=== PATIENT | female | born 1980 | race Caucasian/White ===

== ENCOUNTER 2017-11-22 16:53 | Emergency (ER) | payer SELFPAY ==
[2017-11-22 17:10] VITALS: BP 115/77; PULSE 80; TEMP 98.7; BMI 28.3
--- NOTE | 2017-11-22 17:42 | PDOC ---
History of Present Illness - General History Source: Patient Exam Limitations: No Limitations <Stephy Puente - Last Filed: 11/22/17 17:52> - General History Source: Patient Exam Limitations: No Limitations - History of Present Illness Initial Comments: 11/22/17 17:57 The patient is a 37 year old female with no significant PMH presenting with left shoulder pain for the past month. The patient denies any trauma prior to the onset of her left shoulder pain. Patient endorses severe pain with motion and relief at rest. Patient denies recent skin injections or back surgeries. Patient was seen at [facility] for this left shoulder pain and was advised to follow up with ortho. Patient has not followed up yet, but presents today due to persistent pain. The patient denies fever, chills, nausea, or vomit. Allergies: NKA Past surgical history: None reported. Social history: No reported alcohol, drug, or cigarette use. <Nellie Wiggins - Last Filed: 11/22/17 18:11> - General Chief Complaint: Pain Stated Complaint: LEFT SHOULDER/ARM PAIN Time Seen by Provider: 11/22/17 17:04 Past History - Past Medical History COPD: No DVT: No - Immunization History Immunization Up to Date: Yes - Suicide/Smoking/Psychosocial Hx Smoking History: Current every day smoker Have you smoked in the past 12 months: Yes Number of Cigarettes Smoked Daily: 5 Information on smoking cessation initiated: Yes 'Breaking Loose' booklet given: 11/22/17 Hx Alcohol Use: No Drug/Substance Use Hx: No Substance Use Type: None <Stephy Puente - Last Filed: 11/22/17 17:52> <Nellie Wiggins - Last Filed: 11/22/17 18:11> - Past Medical History Allergies/Adverse Reactions: Allergies Allergy/AdvReac Type Severity Reaction Status Date / Time No Known Allergies Allergy Verified 11/22/17 16:55 Home Medications: Ambulatory Orders Ibuprofen [Motrin -] 600 mg PO TID PRN 11/22/17 Review of Systems - Review of Systems Constitutional: No: Chills, Diaphoresis, Fever, Other Respiratory: No: Cough, Orthopnea Cardiac (ROS): No: Chest Pain, Edema Musculoskeletal: Yes: Joint Pain Integumentary: No: See HPI, Bruising, Change in Color <Stephy Puente - Last Filed: 11/22/17 17:52> *Physical Exam - Vital Signs Last Vital Signs Temp Pulse Resp BP Pulse Ox 98.7 F 80 16 115/77 96 11/22/17 16:54 11/22/17 16:54 11/22/17 16:54 11/22/17 16:54 11/22/17 16:54 - Physical Exam General Appearance: Yes: Appropriately Dressed Neck: positive: Trachea midline Respiratory/Chest: positive: Lungs Clear, Normal Breath Sounds Cardiovascular: positive: Regular Rhythm, Regular Rate, S1, S2 Gastrointestinal/Abdominal: positive: Normal Bowel Sounds, Flat, Soft. negative : Tender Musculoskeletal: positive: Normal Inspection, Decreased Range of Motion, Other ( left shoulder ttp posteriorly. pain on abd, ext rotation, can abduct to 30 degress. elbow, wrist NT FROM ) <Stephy Puente - Last Filed: 11/22/17 17:52> - Vital Signs Last Vital Signs Temp Pulse Resp BP Pulse Ox 98.7 F 80 16 115/77 96 11/22/17 16:54 11/22/17 16:54 11/22/17 16:54 11/22/17 16:54 11/22/17 16:54 <Nellie Wiggins - Last Filed: 11/22/17 18:11> ED Treatment Course - RADIOLOGY Radiology Studies Ordered: Category Date Time Status SHOULDER-LEFT [RAD] Stat Radiology 11/22/17 17:09 Taken <Stephy Puente - Last Filed: 11/22/17 17:52> *DC/Admit/Observation/Transfer <Stephy Puente - Last Filed: 11/22/17 17:52> - Attestations Scribe Attestion: 11/22/17 18:11 Documentation prepared by Nellie Wiggins, acting as medical record retrieval specialist for Stephy Puente MD. <Nellie Wiggins - Last Filed: 11/22/17 18:11> Diagnosis at time of Disposition: Shoulder pain - Discharge Dispostion Disposition: HOME Condition at time of disposition: Good - Referrals Referrals: Fredis Lopez MD [Staff Physician] - - Patient Instructions Printed Discharge Instructions: Frozen Shoulder, DI for Frozen Shoulder Additional Instructions: you should follow up with dr. Lopez, call to schedule. you can take ibuprofen 600 mg every 8 hrs as needed for pain. you should also follow up with physical therapy. you will likely need an outpatient MRI. return for fevers, worsening symptoms or any concern. continue doing range of motion exercises as discussed.
[2017-11-22] MEDS ORDERED: KETOROLAC TROMETHAMINE 30 MG/1 ML VIAL IM ONE (18:07)
[2017-11-22] MEDS ORDERED: KETOROLAC TROMETHAMINE 30 MG/1 ML VIAL ONE (18:09)
== END 2017-11-22 18:17 | disposition home or self-care (01) ==
LOC: FER 16:53
PROC: 3E0233Z Introduction of Anti-inflammatory into Muscle, Percutaneous Approach (ICD-10-PCS; principal; 2017-11-22)
DX: M25.512 Pain in left shoulder (principal)
CPT/HCPCS: 73030-TC-LT-FY; 99282-25